=== PATIENT | male | born 1975 ===

== ENCOUNTER 2019-08-27 10:54 | Outpatient (CLI) | payer OTHER | END 2019-08-27 11:04 | disposition home or self-care (01) | LOC: TOM 10:54 | DX: R22.2 Localized swelling, mass and lump, trunk (principal); I10 Essential (primary) hypertension; M54.5 Low back pain; D17.1 Benign lipomatous neoplasm of skin and subcutaneous tissue of trunk; E03.8 Other specified hypothyroidism; E11.51 Type 2 diabetes mellitus with diabetic peripheral angiopathy without gangrene; E11.9 Type 2 diabetes mellitus without complications; Z12.11 Encounter for screening for malignant neoplasm of colon ==